=== PATIENT | female | born 1945 | race Caucasian/White ===

== ENCOUNTER 2018-03-16 21:57 | Emergency (ER) | payer MEDICARE ==
[~2018-03-16] VITALS: Ht 165.1 cm; Wt 68.0 kg
[~2018-03-16 21:57] MED LIST: ALBMDI INH; ARIP30TA PO; CARV6.2554 PO; DIVA500T4 PO; ESCI10TA PO; ESOM40CA PO; FLUT16SP16 NS; FOLI-43 PO; FOLI-59 PO; GABA-529 PO; LEVO88TA5 PO; LORA0.5T PO; LURA80TA PO; MIRA50TA PO; OMEG1CAP8 PO; POLY17PO4 PO; TRAM50TA92 PO; VIT1CAPS25 PO; VITD2000 PO; ZOLP5TAB2 PO
[2018-03-16 22:03] VITALS: BP_SYST 147
[2018-03-16] MEDS ORDERED: ACETAMINOPHEN 500 MG TABLET PO ONE (22:15)
[2018-03-16] MEDS ORDERED: LOSA50TA3 PO (22:31)
[2018-03-16] MEDS ORDERED: GABA-529 PO (22:31)
[2018-03-16] MEDS ORDERED: DICL112S2 TP (22:31)
[2018-03-16] MEDS ORDERED: CYAN100067 PO (22:31)
[2018-03-16] MEDS ORDERED: LURA80TA PO (22:31)
[2018-03-16] MEDS ORDERED: IBUP-1969 PO (22:31)
[2018-03-16] MEDS ORDERED: ALBMDI INH (22:31)
[2018-03-16] MEDS ORDERED: LINA145C PO (22:31)
[2018-03-16] MEDS ORDERED: ASPI81TA2 PO (22:31)
[2018-03-16] MEDS ORDERED: DIVA500T4 PO (22:31)
[2018-03-17 00:01] VITALS: BP_SYST 147
== END 2018-03-17 00:01 | disposition home or self-care (01) ==
LOC: SED 21:57
DX: S09.90XA Unspecified injury of head, initial encounter (principal); M25.511 Pain in right shoulder; M25.531 Pain in right wrist; E11.9 Type 2 diabetes mellitus without complications; I10 Essential (primary) hypertension; E03.9 Hypothyroidism, unspecified; F41.9 Anxiety disorder, unspecified; F31.9 Bipolar disorder, unspecified; Z88.0 Allergy status to penicillin; Z88.5 Allergy status to narcotic agent; Z79.82 Long term (current) use of aspirin; Z79.899 Other long term (current) drug therapy; W19.XXXA Unspecified fall, initial encounter; Y93.89 Activity, other specified; Y92.89 Other specified places as the place of occurrence of the external cause; Y99.8 Other external cause status
CPT/HCPCS: 70450-TC; 73030; 73090; 99284

== ENCOUNTER 2019-03-29 13:41 | Emergency (ER) | payer MEDICARE, BC ==
[~2019-03-29] VITALS: Ht 157.5 cm; Wt 68.0 kg
[~2019-03-29 13:41] MED LIST changes: +ASPI-1155 PO; +CYAN100010 PO; +DICL112S2 TP; +FISH OIL 1,0001 EAC4 PO; +IBUP-1969 PO; +LINA145C PO; +LOSA50TA3 PO; -OMEG1CAP8 PO; -TRAM50TA92 PO; -VIT1CAPS25 PO
[2019-03-29 13:44] VITALS: BP_SYST 165
[2019-03-29] MEDS ORDERED: KETOROLAC TROMETHAMINE 30 MG VIAL IM ONE (14:15)
[2019-03-29] MEDS ORDERED: ONDANSETRON 4 MG ODT TAB PO ONE (14:45)
[2019-03-29 16:56] VITALS: BP_SYST 140
== END 2019-03-29 16:56 | disposition home or self-care (01) ==
LOC: SED 13:41
DX: R51 Headache (principal); M54.2 Cervicalgia; M54.9 Dorsalgia, unspecified; E11.9 Type 2 diabetes mellitus without complications; I10 Essential (primary) hypertension; E03.9 Hypothyroidism, unspecified; F41.9 Anxiety disorder, unspecified; Z88.0 Allergy status to penicillin; Z88.5 Allergy status to narcotic agent; Z79.82 Long term (current) use of aspirin; Z79.899 Other long term (current) drug therapy; W06.XXXA Fall from bed, initial encounter; Y93.89 Activity, other specified; Y92.89 Other specified places as the place of occurrence of the external cause; Y99.8 Other external cause status
CPT/HCPCS: 70450; 72072; 72100; 72125; 96372; 99284; J1885; Q0162

== ENCOUNTER 2019-05-10 17:39 | Inpatient (IN) | payer BC, MEDICARE ==
[~2019-05-10] VITALS: Ht 165.1 cm; Wt 65.8 kg
[2019-05-10 17:44] VITALS: BP_SYST 142
[2019-05-10] MEDS ORDERED: LEVO100T9 PO (18:34)
[2019-05-10] MEDS ORDERED: CALC1CAP19 PO (18:54)
[2019-05-10] MEDS ORDERED: DIVA-50 PO (18:54)
[2019-05-10] MEDS ORDERED: Tramadol (18:54)
[2019-05-10] MEDS ORDERED: DICL100G19 TP (18:54)
[2019-05-10] MEDS ORDERED: CARB1TAB10 PO (18:54)
[2019-05-10] MEDS ORDERED: vitamin B1 (18:54)
[2019-05-10] MEDS ORDERED: ALBMDI INH ×2 (18:54)
[2019-05-10] MEDS ORDERED: GABA-531 PO ×2 (18:54→21:22)
[2019-05-10] MEDS ORDERED: DICL2SOL TP (18:54)
[2019-05-10] MEDS ORDERED: DEPS125 PO (18:54)
[2019-05-10] MEDS ORDERED: SOD4000S2 PO (18:54)
[2019-05-10] MEDS ORDERED: DONE5TAB26 PO (18:54)
[2019-05-10] MEDS ORDERED: LOPE2CAP PO (18:54)
[2019-05-10] MEDS ORDERED: ASCO500T20 PO (18:54)
[2019-05-10 19:12] LABS: BASOPHILS % (AUTO) 0.4 % (0.0-2.0); EOSINOPHILS % (AUTO) 1.2 % (0.0-4.0); HEMOGLOBIN 11.2 g/dL (12.0-16.0); LYMPHOCYTES # (AUTO) 1.2 K/uL (1.0-5.5); LYMPHOCYTES % (AUTO) 33.4 % (20.5-51.5); MEAN CORPUSCULAR HEMOGLOBIN 32 pg (27-31); MEAN CORPUSCULAR HGB CONC 34 % (32-36); MEAN CORPUSCULAR VOLUME 94 fL (79.0-98.0); MONOCYTES # (AUTO) 0.5 K/uL (0.0-1.0); MONOCYTES % (AUTO) 12.6 % (1.7-9.3); NEUTROPHILS # (AUTO) 1.9 K/uL (1.8-7.7); NEUTROPHILS % (AUTO) 52.4 % (40.0-70.0); PLATELET COUNT (AUTO) 184 K/uL (130-430); RED CELL DISTRIBUTION WIDTH 13.6 % (9.0-15.0); WHITE BLOOD COUNT (AUTO) 3.7 K/uL (4.8-10.8)
[2019-05-10 19:15] LABS: ANION GAP 2 (5-15); CALCIUM 8.9 mg/dL (8.4-11.0); CHLORIDE 94 mmol/L (98-107); CREATININE 0.69 mg/dL (0.55-1.30); GLUCOSE 98 mg/dL (70-99); POTASSIUM 4.4 mmol/L (3.5-5.1); SODIUM SERUM 127 mmol/L (136-145); UREA NITROGEN, BLOOD 15 mg/dL (8-21)
[2019-05-10 19:17] LABS: PROTHROMBIN TIME 10.4 SECS (9.5-12.5)
[2019-05-10 19:48] LABS: ALANINE AMINOTRANSFERASE 16 U/L (12-78); ASPARTATE AMINOTRANSFERASE 16 U/L (10-37); TOTAL BILIRUBIN 0.2 mg/dL (0.0-1.0)
[2019-05-10 19:51] LABS: ALCOHOL, BLOOD 3 mg/dL (<10)
[2019-05-10 19:58] LABS: FREE T4 (FREE THYROXINE) 1.2 ng/dL (0.6-1.6)
[2019-05-10] MEDS ORDERED: TRAMADOL PO (21:22)
[2019-05-10] MEDS ORDERED: VITAMIN D3 PO (21:22)
[2019-05-10] MEDS ORDERED: DONE10TA44 PO (21:22)
[2019-05-10 21:25] LABS: BILIRUBIN,URINE NEGATIVE (NEGATIVE); BLOOD, URINE NEGATIVE (NEGATIVE); CLARITY/URINE CLEAR (CLEAR); COLOR,URINE YELLOW (YELLOW); GLUCOSE,URINE NEGATIVE (NEGATIVE); KETONES,URINE NEGATIVE (NEGATIVE); NITRITE, URINE NEGATIVE (NEGATIVE); PROTEIN URINE NEGATIVE (NEGATIVE); UROBILINOGEN,URINE 0.2 (0.2-1.0)
[2019-05-10 21:37] LABS: BARBITURATE, URINE NEGATIVE (NEG <=200); BENZODIAZEPINE, URINE POSITIVE (NEG <=150); CANNABINOID, URINE NEGATIVE (NEG <=50); COCAINE, URINE NEGATIVE (NEG <=150); METHAMPHETAMINES SCREEN,URINE NEGATIVE (NEG <=500); OPIATE, URINE NEGATIVE (NEG <=100); PHENCYCLIDINE SCREEN,URINE NEGATIVE (NEG <=25); UR TRICYCLIC ANTIDEPRESSANTS NEGATIVE (NEG <=300); URINE AMPHETAMINE NEGATIVE (NEG <=500); URINE METHADONE NEGATIVE (NEG <=200); URINE OXYCODONE SCREEN NEGATIVE (NEG <=100); URINE PROPOXYPHENE SCREEN NEGATIVE (NEG <=300)
[2019-05-10 21:38] LABS: LEUKOCYTE ESTERASE ,URINE TRACE (NEGATIVE)
[2019-05-10 21:39] LABS: BACTERIA,URINE FEW /HPF (None Seen); MUCUS,URINE None Seen /LPF (None Seen); WBC,URINE NONE SEEN /HPF (0-3)
[2019-05-10] MEDS ORDERED: ASPIRIN 81 MG TAB.CHEW PO ONE (23:00)
[2019-05-10] MEDS ORDERED: KCL 20 mEq in NS 1000 mL 1,000 ML IV ONE (23:15)
[2019-05-10] MEDS ORDERED: INSULIN REGULAR, HUMAN 100 UNITS/ML, 10 ML VIAL (humuLIN R) SUBCUT PRN (23:15)
[2019-05-10] MEDS ORDERED: NACL 0.9% 1,000 ML IV ONE (23:15)
[2019-05-10 23:59] VITALS: BP_SYST 152
[2019-05-11] MEDS ORDERED: KCL 20 mEq in NS 1000 mL 1,000 ML IV ONE ×2 (00:50→14:45)
[2019-05-11 04:30] VITALS: BP_SYST 142
[2019-05-11 11:09] VITALS: BP_SYST 145
[2019-05-11 12:00] VITALS: BP_SYST 122
[2019-05-11] MEDS: KETOROLAC TROMETHAMINE 15 MG VIAL IVP PRN ×2 (14:03→20:28)
[2019-05-11] MEDS ORDERED: LOPERAMIDE HCL 2 MG CAPSULE PO PRN (14:45)
[2019-05-11] MEDS ORDERED: MILK OF MAGNESIA 30 ML UDC PO PRN (14:45)
[2019-05-11 16:00] VITALS: BP_SYST 116
[2019-05-11 20:00] VITALS: BP_SYST 141
[2019-05-11] MEDS: FLUTICASONE PROPIONATE 50 mCg/SPRAY 16 GM NS SCH (20:31)
[2019-05-11] MEDS: DOCUSATE SODIUM 100 MG CAPSULE PO SCH (20:32)
[2019-05-11] MEDS: DONEPEZIL HCL 5 MG TABLET (ARICEPT) PO SCH (20:32)
[2019-05-11] MEDS: GABAPENTIN 300 MG CAPSULE PO SCH (20:33)
[2019-05-11] MEDS: CARVEDILOL 6.25 MG TABLET (COREG) PO SCH (20:33)
[2019-05-11] MEDS: DIVALPROEX SODIUM 125 MG CAP.(DEPAKOTE SPRINKLE) PO SCH (20:33)
[2019-05-11] MEDS: ENOXAPARIN SODIUM 40 MG/0.4 ML SYRINGE SUBCUT SCH (20:34)
[2019-05-11] MEDS: TEMAZEPAM 15 MG CAPSULE PO PRN (22:14)
[2019-05-12 00:37] VITALS: BP_SYST 119
[2019-05-12 06:35] LABS: ANION GAP 2 (5-15); CALCIUM 8.6 mg/dL (8.4-11.0); CHLORIDE 100 mmol/L (98-107); CREATININE 0.77 mg/dL (0.55-1.30); GLUCOSE 81 mg/dL (70-99); POTASSIUM 4.9 mmol/L (3.5-5.1); SODIUM SERUM 135 mmol/L (136-145); UREA NITROGEN, BLOOD 13 mg/dL (8-21)
[2019-05-12 06:39] LABS: BASOPHILS % (AUTO) 0.8 % (0.0-2.0); EOSINOPHILS % (AUTO) 1.1 % (0.0-4.0); HEMATOCRIT 34.7 % (36-48); HEMOGLOBIN 12.1 g/dL (12.0-16.0); LYMPHOCYTES # (AUTO) 1.2 K/uL (1.0-5.5); LYMPHOCYTES % (AUTO) 28.9 % (20.5-51.5); MEAN CORPUSCULAR HEMOGLOBIN 33 pg (27-31); MEAN CORPUSCULAR HGB CONC 35 % (32-36); MEAN CORPUSCULAR VOLUME 94 fL (79.0-98.0); MONOCYTES # (AUTO) 0.6 K/uL (0.0-1.0); MONOCYTES % (AUTO) 14.7 % (1.7-9.3); NEUTROPHILS # (AUTO) 2.2 K/uL (1.8-7.7); NEUTROPHILS % (AUTO) 54.5 % (40.0-70.0); PLATELET COUNT (AUTO) 192 K/uL (130-430); RED BLOOD CELL COUNT(AUTO) 3.69 MIL/uL (4.2-6.2); RED CELL DISTRIBUTION WIDTH 13.8 % (9.0-15.0); WHITE BLOOD COUNT (AUTO) 4.1 K/uL (4.8-10.8)
[2019-05-12] MEDS: ASCORBIC ACID 500 MG TABLET PO SCH (08:22)
[2019-05-12] MEDS: CARVEDILOL 6.25 MG TABLET (COREG) PO SCH ×2 (08:22→20:56)
[2019-05-12] MEDS: ASPIRIN 81 MG TAB.CHEW PO SCH (08:22)
[2019-05-12] MEDS: FOLIC ACID 1 MG TABLET PO SCH (08:22)
[2019-05-12] MEDS: LEVOTHYROXINE SODIUM 0.1 MG TABLET PO SCH (08:22)
[2019-05-12] MEDS: CYANOCOBALAMIN 1000 mCg TABLET PO SCH (08:23)
[2019-05-12] MEDS: DOCUSATE SODIUM 100 MG CAPSULE PO SCH ×2 (08:23→20:56)
[2019-05-12] MEDS: LOSARTAN POTASSIUM 50 MG TABLET (COZAAR) PO SCH (08:24)
[2019-05-12] MEDS: CITALOPRAM HYDROBROMIDE 20 MG TABLET PO SCH (08:24)
[2019-05-12] MEDS: POLYETHYLENE GLYCOL 3350, 17 GM/ POWD.PACK PO SCH (08:24)
[2019-05-12] MEDS: FLUTICASONE PROPIONATE 50 mCg/SPRAY 16 GM NS SCH ×2 (08:25→21:22)
[2019-05-12] MEDS: KETOROLAC TROMETHAMINE 15 MG VIAL IVP PRN (09:49)
[2019-05-12 10:24] VITALS: BP_SYST 155
[2019-05-12 12:26] VITALS: BP_SYST 131
[2019-05-12] MEDS: IBUPROFEN 600 MG TABLET PO PRN (14:51)
[2019-05-12] MEDS: KCL 20 mEq in NS 1000 mL 1,000 ML IV SCH ×2 (15:46→23:18)
[2019-05-12 16:10] VITALS: BP_SYST 117
[2019-05-12 19:57] VITALS: BP_SYST 135
[2019-05-12] MEDS: DONEPEZIL HCL 5 MG TABLET (ARICEPT) PO SCH (20:56)
[2019-05-12] MEDS: DIVALPROEX SODIUM 125 MG CAP.(DEPAKOTE SPRINKLE) PO SCH (20:56)
[2019-05-12] MEDS: GABAPENTIN 300 MG CAPSULE PO SCH (20:56)
[2019-05-12] MEDS: ENOXAPARIN SODIUM 40 MG/0.4 ML SYRINGE SUBCUT SCH (20:57)
[2019-05-12] MEDS: TEMAZEPAM 15 MG CAPSULE PO PRN (22:06)
[2019-05-13 02:07] VITALS: BP_SYST 125
[2019-05-13] MEDS: CYANOCOBALAMIN 1000 mCg TABLET PO SCH (09:16)
[2019-05-13] MEDS: ASCORBIC ACID 500 MG TABLET PO SCH (09:16)
[2019-05-13] MEDS: DOCUSATE SODIUM 100 MG CAPSULE PO SCH ×2 (09:16→20:16)
[2019-05-13] MEDS: CARVEDILOL 6.25 MG TABLET (COREG) PO SCH ×2 (09:17→20:17)
[2019-05-13] MEDS: FOLIC ACID 1 MG TABLET PO SCH (09:18)
[2019-05-13] MEDS: LOSARTAN POTASSIUM 50 MG TABLET (COZAAR) PO SCH (09:18)
[2019-05-13] MEDS: CITALOPRAM HYDROBROMIDE 20 MG TABLET PO SCH (09:18)
[2019-05-13] MEDS: LEVOTHYROXINE SODIUM 0.1 MG TABLET PO SCH (09:19)
[2019-05-13] MEDS: POLYETHYLENE GLYCOL 3350, 17 GM/ POWD.PACK PO SCH (09:24)
[2019-05-13] MEDS: ASPIRIN 81 MG TAB.CHEW PO SCH (09:24)
[2019-05-13] MEDS: FLUTICASONE PROPIONATE 50 mCg/SPRAY 16 GM NS SCH ×2 (09:25→20:16)
[2019-05-13] MEDS: IBUPROFEN 600 MG TABLET PO PRN (10:40)
[2019-05-13 12:46] VITALS: BP_SYST 127
[2019-05-13 16:30] VITALS: BP_SYST 119
[2019-05-13 20:15] VITALS: BP_SYST 140
[2019-05-13] MEDS: DIVALPROEX SODIUM 125 MG CAP.(DEPAKOTE SPRINKLE) PO SCH (20:16)
[2019-05-13] MEDS: DONEPEZIL HCL 5 MG TABLET (ARICEPT) PO SCH (20:17)
[2019-05-13] MEDS: GABAPENTIN 300 MG CAPSULE PO SCH (20:17)
[2019-05-13] MEDS: ENOXAPARIN SODIUM 40 MG/0.4 ML SYRINGE SUBCUT SCH (20:18)
[2019-05-13] MEDS: KCL 20 mEq in NS 1000 mL 1,000 ML IV SCH (21:54)
[2019-05-13] MEDS: TEMAZEPAM 15 MG CAPSULE PO PRN (21:54)
[2019-05-14] VITALS: BP_SYST 110
[2019-05-14] MEDS: KETOROLAC TROMETHAMINE 15 MG VIAL IVP PRN (03:53)
[2019-05-14] MEDS: KCL 20 mEq in NS 1000 mL 1,000 ML IV SCH ×2 (05:51→16:05)
[2019-05-14 08:00] VITALS: BP_SYST 138
[2019-05-14] MEDS: DOCUSATE SODIUM 100 MG CAPSULE PO SCH (08:40)
[2019-05-14] MEDS: FLUTICASONE PROPIONATE 50 mCg/SPRAY 16 GM NS SCH (08:40)
[2019-05-14] MEDS: ASCORBIC ACID 500 MG TABLET PO SCH (08:40)
[2019-05-14] MEDS: POLYETHYLENE GLYCOL 3350, 17 GM/ POWD.PACK PO SCH (08:40)
[2019-05-14] MEDS: LOSARTAN POTASSIUM 50 MG TABLET (COZAAR) PO SCH (08:41)
[2019-05-14] MEDS: CYANOCOBALAMIN 1000 mCg TABLET PO SCH (08:41)
[2019-05-14] MEDS: ASPIRIN 81 MG TAB.CHEW PO SCH (08:41)
[2019-05-14] MEDS: LEVOTHYROXINE SODIUM 0.1 MG TABLET PO SCH (08:41)
[2019-05-14] MEDS: FOLIC ACID 1 MG TABLET PO SCH (08:41)
[2019-05-14] MEDS: CITALOPRAM HYDROBROMIDE 20 MG TABLET PO SCH (08:41)
[2019-05-14] MEDS: CARVEDILOL 6.25 MG TABLET (COREG) PO SCH (08:42)
[2019-05-14] MEDS: IBUPROFEN 600 MG TABLET PO PRN (08:57)
[2019-05-14 12:00] VITALS: BP_SYST 155
[2019-05-14 17:09] VITALS: BP_SYST 172
[2019-05-14 19:53] VITALS: BP_SYST 141
== END 2019-05-14 20:50 | DRG 347 ==
LOC: SED 17:39 → SMU 23:06
PROVIDERS: ADMIT Family Medicine; ATTEND Family Medicine
DX: M51.26 Other intervertebral disc displacement, lumbar region (principal); G20 Parkinson's disease; I42.9 Cardiomyopathy, unspecified; E87.1 Hypo-osmolality and hyponatremia; D64.9 Anemia, unspecified; E11.9 Type 2 diabetes mellitus without complications; M85.80 Other specified disorders of bone density and structure, unspecified site; F41.9 Anxiety disorder, unspecified; E03.9 Hypothyroidism, unspecified; M19.90 Unspecified osteoarthritis, unspecified site; F31.9 Bipolar disorder, unspecified; I10 Essential (primary) hypertension; R29.6 Repeated falls; Z79.84 Long term (current) use of oral hypoglycemic drugs; Z88.0 Allergy status to penicillin; Z88.5 Allergy status to narcotic agent; Z79.82 Long term (current) use of aspirin; Z79.899 Other long term (current) drug therapy; Z91.011 Allergy to milk products
CPT/HCPCS: 36415; 70450-TC; 71045; 72131; 72148; 74018; 80048; 80053; 80307; 81000-TC; 82140-TC; 82962; 83605; 83880; 84439; 84484; 85025; 85610-TC; 87040-TC; 93005; 97116-GP; 97530-GP; 99285; G0482; J1650; J1815; J1885; J3480

== ENCOUNTER 2022-08-11 13:35 | Inpatient (IN) | payer BC, MEDICARE ==
[~2022-08-11] VITALS: Ht 165.1 cm; Wt 65.8 kg
[2022-08-11 13:35] VITALS: BP_SYST 113
[~2022-08-11 13:35] MED LIST changes: -ARIP30TA PO; +ASCO500T20 PO; +CALC1CAP19 PO; +CARB1TAB10 PO; +DEPS125 PO; +DICL100G19 TP; -DICL112S2 TP; +DICL2SOL TP; +DIVA-50 PO; -DIVA500T4 PO; +DONE-49 PO; +DONE10TA44 PO; -GABA-529 PO; +GABA-531 PO; +LEVO100T9 PO; -LEVO88TA5 PO; +LOPE2CAP PO; -LURA80TA PO; +LURA80TA2 PO; +TRAMADOL PO; +VITAMIN D3 PO; -VITD2000 PO; -ZOLP5TAB2 PO
[2022-08-11] MEDS ORDERED: TELM80TA2 PO (14:08)
[2022-08-11] MEDS ORDERED: HYDR-3917 PO (14:08)
[2022-08-11] MEDS ORDERED: SER25 PO (14:08)
[2022-08-11] MEDS ORDERED: LEVO5TAB13 PO (14:08)
[2022-08-11] MEDS ORDERED: BUSP10TA3 PO (14:08)
[2022-08-11] MEDS ORDERED: OLOP5DRO27 EACH EYE (14:08)
[2022-08-11] MEDS ORDERED: BACL5TAB PO (14:08)
[2022-08-11 15:44] LABS: BASOPHILS % (AUTO) 0.4 % (0.0-2.0); HEMATOCRIT 36.2 % (36-48); HEMOGLOBIN 12.6 g/dL (12.0-16.0); LYMPHOCYTES % (AUTO) 15.2 % (20.5-51.5); MEAN CORPUSCULAR HEMOGLOBIN 31 pg (27-31); MEAN CORPUSCULAR HGB CONC 35 % (32-36); MEAN CORPUSCULAR VOLUME 90 fL (79.0-98.0); MONOCYTES % (AUTO) 14.4 % (1.7-9.3); NEUTROPHILS # (AUTO) 4.7 K/uL (1.8-7.7); PLATELET COUNT (AUTO) 164 K/uL (130-430); RED BLOOD CELL COUNT(AUTO) 4.03 MIL/uL (4.2-6.2); RED CELL DISTRIBUTION WIDTH 14.4 % (9.0-15.0); WHITE BLOOD COUNT (AUTO) 6.7 K/uL (4.8-10.8)
[2022-08-11 15:53] LABS: ANION GAP 5 (5-15); CHLORIDE 94 mmol/L (98-107); CREATININE 1.07 mg/dL (0.55-1.30); GLUCOSE 97 mg/dL (70-99); UREA NITROGEN, BLOOD 15 mg/dL (8-21)
[2022-08-11 16:01] LABS: ALANINE AMINOTRANSFERASE 5 U/L (12-78); ALBUMIN 3.1 g/dL (3.4-4.8); ASPARTATE AMINOTRANSFERASE 21 U/L (10-37); TOTAL BILIRUBIN 0.4 mg/dL (0.0-1.0)
[2022-08-11 16:04] LABS: ALCOHOL, BLOOD < 3 mg/dL (<10)
[2022-08-11 16:05] LABS: BILIRUBIN,URINE NEGATIVE (NEGATIVE); BLOOD, URINE 1+ (NEGATIVE); CLARITY/URINE CLEAR (CLEAR); COLOR,URINE YELLOW (YELLOW); GLUCOSE,URINE NEGATIVE (NEGATIVE); KETONES,URINE 1+ (NEGATIVE); LEUKOCYTE ESTERASE ,URINE NEGATIVE (NEGATIVE); NITRITE, URINE NEGATIVE (NEGATIVE); PH,URINE 6.5 (5.0-8.0); PROTEIN URINE NEGATIVE (NEGATIVE); UROBILINOGEN,URINE 0.2 (0.2-1.0)
[2022-08-11 16:10] LABS: CALCIUM 9.1 mg/dL (8.4-11.0)
[2022-08-11 16:18] LABS: BACTERIA,URINE FEW /HPF (None Seen); BARBITURATE, URINE NEGATIVE (NEG <=200); METHAMPHETAMINES SCREEN,URINE NEGATIVE (NEG <=500); MUCUS,URINE None Seen /LPF (None Seen); RBC,URINE NONE SEEN /HPF (0-3); URINE AMPHETAMINE NEGATIVE (NEG <=500); URINE METHADONE NEGATIVE (NEG <=200); WBC,URINE 0-3 /HPF (0-3)
[2022-08-11 16:19] LABS: BENZODIAZEPINE, URINE POSITIVE (NEG <=150); CANNABINOID, URINE NEGATIVE (NEG <=50); COCAINE, URINE NEGATIVE (NEG <=150); OPIATE, URINE NEGATIVE (NEG <=100); PHENCYCLIDINE SCREEN,URINE NEGATIVE (NEG <=25); UR TRICYCLIC ANTIDEPRESSANTS POSITIVE (NEG <=300); URINE OXYCODONE SCREEN NEGATIVE (NEG <=100); URINE PROPOXYPHENE SCREEN NEGATIVE (NEG <=300)
[2022-08-11] MEDS ORDERED: NACL 0.9% 1,000 ML IV ONE (17:30)
[2022-08-11] MEDS ORDERED: INSULIN REGULAR, HUMAN 100 UNITS/ML, 3 ML VIAL (humuLIN R) SUBCUT PRN (19:30)
[2022-08-11] MEDS ORDERED: DEXTROSE 50% JECT 50 ML DISP.SYRIN IVP PRN (19:30)
[2022-08-11] MEDS ORDERED: HYDROcodone/ACETAMIN 5-325 MG TAB (NORCO/ VICODIN) PO PRN (19:30)
[2022-08-11] MEDS ORDERED: DEXAMETHASONE SOD PHOSPHATE 10 MG/ML VIAL IVP SCH (19:30)
[2022-08-11] MEDS ORDERED: NALOXONE HCL 0.4 MG/ML AMP (NARCAN) IVP PRN (19:30)
[2022-08-11] MEDS: D5NS 1,000 ML IV SCH (20:12)
[2022-08-11] MEDS: FLUTICASONE PROPIONATE 50 mCg/SPRAY 16 GM NS SCH (21:00)
[2022-08-11] MEDS: busPIRone HCL 5 MG TABLET PO SCH (21:00)
[2022-08-11] MEDS: DONEPEZIL HCL 5 MG TABLET (ARICEPT) PO SCH (21:00)
[2022-08-11] MEDS ORDERED: DONEPEZIL HCL 5 MG PO SCH (21:00)
[2022-08-11 22:23] VITALS: BP_SYST 147
[2022-08-12] MEDS: D5NS 1,000 ML IV SCH ×2 (04:17→13:50)
[2022-08-12] MEDS: PANTOPRAZOLE SODIUM 40 MG TAB PO SCH (06:54)
[2022-08-12 08:21] LABS: BASOPHILS % (AUTO) 0.6 % (0.0-2.0); HEMATOCRIT 35.7 % (36-48); HEMOGLOBIN 12.1 g/dL (12.0-16.0); LYMPHOCYTES # (AUTO) 1.1 K/uL (1.0-5.5); LYMPHOCYTES % (AUTO) 25.3 % (20.5-51.5); MEAN CORPUSCULAR HEMOGLOBIN 31 pg (27-31); MEAN CORPUSCULAR HGB CONC 34 % (32-36); MEAN CORPUSCULAR VOLUME 90 fL (79.0-98.0); MONOCYTES # (AUTO) 0.7 K/uL (0.0-1.0); NEUTROPHILS # (AUTO) 2.5 K/uL (1.8-7.7); NEUTROPHILS % (AUTO) 58.1 % (40.0-70.0); PLATELET COUNT (AUTO) 164 K/uL (130-430); RED BLOOD CELL COUNT(AUTO) 3.96 MIL/uL (4.2-6.2); RED CELL DISTRIBUTION WIDTH 14.2 % (9.0-15.0); WHITE BLOOD COUNT (AUTO) 4.4 K/uL (4.8-10.8)
[2022-08-12 08:48] LABS: ALANINE AMINOTRANSFERASE 9 U/L (12-78); ALBUMIN 2.8 g/dL (3.4-4.8); ANION GAP 7 (5-15); ASPARTATE AMINOTRANSFERASE 22 U/L (10-37); CALCIUM 8.3 mg/dL (8.4-11.0); CHLORIDE 95 mmol/L (98-107); CREATININE 0.59 mg/dL (0.55-1.30); FREE T4 (FREE THYROXINE) 1.3 ng/dL (0.6-1.6); GLUCOSE 103 mg/dL (70-99); THYROID STIMULATING HORMONE 0.06 uIu/mL (0.34-4.82); TOTAL BILIRUBIN 0.4 mg/dL (0.0-1.0); UREA NITROGEN, BLOOD 12 mg/dL (8-21)
[2022-08-12] MEDS ORDERED: LEVOTHYROXINE SODIUM 0.1 MG TABLET PO SCH (09:00)
[2022-08-12] MEDS: CARVEDILOL 6.25 MG TABLET (COREG) PO SCH ×2 (09:00→21:57)
[2022-08-12] MEDS: ASCORBIC ACID 500 MG TABLET PO SCH (09:22)
[2022-08-12] MEDS: DIVALPROEX SODIUM 500 MG TABLET( DEPAKOTE) PO SCH ×2 (09:22→17:11)
[2022-08-12] MEDS: CITALOPRAM HYDROBROMIDE 20 MG TABLET PO SCH (09:22)
[2022-08-12] MEDS: FOLIC ACID 1 MG TABLET PO SCH (09:22)
[2022-08-12] MEDS: MULTIVITS,CA,MINERALS/IRON/FA 1 TABLET PO SCH (09:23)
[2022-08-12] MEDS: CYANOCOBALAMIN 1000 mCg TABLET PO SCH (09:23)
[2022-08-12] MEDS: busPIRone HCL 5 MG TABLET PO SCH ×2 (09:23→21:57)
[2022-08-12] MEDS: OMEGA-3/DHA/EPA/FISH OIL 1 GM CAPSULE PO SCH (09:23)
[2022-08-12] MEDS: ASPIRIN 81 MG TAB.CHEW PO SCH (09:24)
[2022-08-12] MEDS: CALCIUM CARBONATE/VITAMIN D3 1 TAB TABLET PO SCH (09:24)
[2022-08-12] MEDS: POLYETHYLENE GLYCOL 3350, 17 GM/ POWD.PACK PO SCH (09:24)
[2022-08-12] MEDS: CHOLECALCIFEROL (VITAMIN D3) 5,000 UNIT TABLET PO SCH (09:25)
[2022-08-12] MEDS: NAPHAZOLINE HCL/PHENIRAMINE 15 ML OPHT. DROPS OP SCH (09:26)
[2022-08-12] MEDS: FLUTICASONE PROPIONATE 50 mCg/SPRAY 16 GM NS SCH ×3 (09:26→22:12)
[2022-08-12 12:45] VITALS: BP_SYST 133
[2022-08-12] MEDS ORDERED: POTASSIUM CHLORIDE 20 MEQ TAB.PRT.SR PO ONE (16:30)
[2022-08-12 16:45] VITALS: BP_SYST 134
[2022-08-12] MEDS: LR 1,000 ML IV SCH (17:11)
[2022-08-12] MEDS: QUEtiapine FUMARATE 25 MG TABLET PO SCH (18:25)
[2022-08-12 20:45] VITALS: BP_SYST 125
[2022-08-12] MEDS: LATUDA 40 MG PO SCH (21:00)
[2022-08-12] MEDS: DIVALPROEX SODIUM 125 MG CAP.(DEPAKOTE SPRINKLE) PO SCH (21:57)
[2022-08-12] MEDS: ALBUTEROL MDI INHALATION 8 GM INH INH PRN (21:57)
[2022-08-12] MEDS: DONEPEZIL HCL 5 MG TABLET (ARICEPT) PO SCH (21:58)
[2022-08-12] MEDS: CARBIDOPA/LEVODOPA 25/100 MG TABLET PO SCH (22:11)
[2022-08-13 00:25] VITALS: BP_SYST 116
[2022-08-13] MEDS: LEVOTHYROXINE SODIUM 0.1 MG TABLET PO SCH (06:18)
[2022-08-13] MEDS: PANTOPRAZOLE SODIUM 40 MG TAB PO SCH (06:18)
[2022-08-13] MEDS: ALBUTEROL MDI INHALATION 8 GM INH INH PRN (06:34)
[2022-08-13] MEDS: LATUDA 40 MG PO SCH ×2 (09:00→21:00)
[2022-08-13] MEDS: OMEGA-3/DHA/EPA/FISH OIL 1 GM CAPSULE PO SCH (09:00)
[2022-08-13] MEDS: MYRBETRIQ 50 MG PO SCH (09:00)
[2022-08-13 09:02] VITALS: BP_SYST 140
[2022-08-13] MEDS: CARVEDILOL 6.25 MG TABLET (COREG) PO SCH ×2 (10:32→21:50)
[2022-08-13] MEDS: ASPIRIN 81 MG TAB.CHEW PO SCH (10:33)
[2022-08-13] MEDS: CITALOPRAM HYDROBROMIDE 20 MG TABLET PO SCH (10:33)
[2022-08-13] MEDS: busPIRone HCL 5 MG TABLET PO SCH ×2 (10:33→21:49)
[2022-08-13] MEDS: DIVALPROEX SODIUM 500 MG TABLET( DEPAKOTE) PO SCH ×2 (10:33→16:09)
[2022-08-13] MEDS: MULTIVITS,CA,MINERALS/IRON/FA 1 TABLET PO SCH (10:40)
[2022-08-13] MEDS: FOLIC ACID 1 MG TABLET PO SCH (10:40)
[2022-08-13] MEDS: ASCORBIC ACID 500 MG TABLET PO SCH (10:40)
[2022-08-13] MEDS: CALCIUM CARBONATE/VITAMIN D3 1 TAB TABLET PO SCH (10:40)
[2022-08-13] MEDS: POLYETHYLENE GLYCOL 3350, 17 GM/ POWD.PACK PO SCH (10:40)
[2022-08-13] MEDS: CYANOCOBALAMIN 1000 mCg TABLET PO SCH (10:40)
[2022-08-13] MEDS: FLUTICASONE PROPIONATE 50 mCg/SPRAY 16 GM NS SCH ×2 (10:41→21:51)
[2022-08-13] MEDS: CHOLECALCIFEROL (VITAMIN D3) 5,000 UNIT TABLET PO SCH (10:41)
[2022-08-13] MEDS: NAPHAZOLINE HCL/PHENIRAMINE 15 ML OPHT. DROPS OP SCH (10:42)
[2022-08-13] MEDS: LR 1,000 ML IV SCH (14:10)
[2022-08-13 15:33] LABS: BASOPHILS # (AUTO) 0.2 K/uL (0.0-0.2); BASOPHILS % (AUTO) 3.8 % (0.0-2.0); EOSINOPHILS % (AUTO) 0.3 % (0.0-4.0); HEMATOCRIT 34.5 % (36-48); HEMOGLOBIN 12.2 g/dL (12.0-16.0); LYMPHOCYTES # (AUTO) 1.1 K/uL (1.0-5.5); LYMPHOCYTES % (AUTO) 17.7 % (20.5-51.5); MEAN CORPUSCULAR HEMOGLOBIN 31 pg (27-31); MEAN CORPUSCULAR HGB CONC 35 % (32-36); MEAN CORPUSCULAR VOLUME 89 fL (79.0-98.0); MONOCYTES # (AUTO) 0.6 K/uL (0.0-1.0); MONOCYTES % (AUTO) 9.7 % (1.7-9.3); NEUTROPHILS # (AUTO) 4.2 K/uL (1.8-7.7); NEUTROPHILS % (AUTO) 68.5 % (40.0-70.0); PLATELET COUNT (AUTO) 163 K/uL (130-430); RED BLOOD CELL COUNT(AUTO) 3.88 MIL/uL (4.2-6.2); WHITE BLOOD COUNT (AUTO) 6.1 K/uL (4.8-10.8)
[2022-08-13 15:43] LABS: ANION GAP 3 (5-15); CALCIUM 8.7 mg/dL (8.4-11.0); CHLORIDE 97 mmol/L (98-107); CREATININE 0.51 mg/dL (0.55-1.30); GLUCOSE 97 mg/dL (70-99); UREA NITROGEN, BLOOD 6 mg/dL (8-21)
[2022-08-13 16:25] VITALS: BP_SYST 148
[2022-08-13] MEDS: QUEtiapine FUMARATE 25 MG TABLET PO SCH (18:15)
[2022-08-13 20:00] VITALS: BP_SYST 133
[2022-08-13] MEDS: DONEPEZIL HCL 5 MG TABLET (ARICEPT) PO SCH (21:49)
[2022-08-13] MEDS: DIVALPROEX SODIUM 125 MG CAP.(DEPAKOTE SPRINKLE) PO SCH (21:49)
[2022-08-13] MEDS: CARBIDOPA/LEVODOPA 25/100 MG TABLET PO SCH (21:49)
[2022-08-14 01:59] VITALS: BP_SYST 135
[2022-08-14 06:38] LABS: BASOPHILS % (AUTO) 0.4 % (0.0-2.0); EOSINOPHILS % (AUTO) 0.6 % (0.0-4.0); HEMATOCRIT 35.2 % (36-48); LYMPHOCYTES # (AUTO) 1.3 K/uL (1.0-5.5); LYMPHOCYTES % (AUTO) 39.2 % (20.5-51.5); MEAN CORPUSCULAR HEMOGLOBIN 30 pg (27-31); MEAN CORPUSCULAR HGB CONC 34 % (32-36); MEAN CORPUSCULAR VOLUME 89 fL (79.0-98.0); MONOCYTES # (AUTO) 0.5 K/uL (0.0-1.0); MONOCYTES % (AUTO) 16.5 % (1.7-9.3); NEUTROPHILS # (AUTO) 1.4 K/uL (1.8-7.7); NEUTROPHILS % (AUTO) 43.3 % (40.0-70.0); PLATELET COUNT (AUTO) 162 K/uL (130-430); RED BLOOD CELL COUNT(AUTO) 3.95 MIL/uL (4.2-6.2); RED CELL DISTRIBUTION WIDTH 14.1 % (9.0-15.0); WHITE BLOOD COUNT (AUTO) 3.3 K/uL (4.8-10.8)
[2022-08-14] MEDS: PANTOPRAZOLE SODIUM 40 MG TAB PO SCH (06:38)
[2022-08-14] MEDS: LEVOTHYROXINE SODIUM 0.1 MG TABLET PO SCH (06:38)
[2022-08-14 07:27] LABS: ANION GAP 4 (5-15); CALCIUM 8.7 mg/dL (8.4-11.0); CHLORIDE 98 mmol/L (98-107); CREATININE 0.51 mg/dL (0.55-1.30); GLUCOSE 91 mg/dL (70-99); UREA NITROGEN, BLOOD 6 mg/dL (8-21)
[2022-08-14 08:00] VITALS: BP_SYST 177
[2022-08-14] MEDS: LATUDA 40 MG PO SCH ×2 (09:00→22:15)
[2022-08-14] MEDS: MYRBETRIQ 50 MG PO SCH (09:00)
[2022-08-14] MEDS: POLYETHYLENE GLYCOL 3350, 17 GM/ POWD.PACK PO SCH (09:30)
[2022-08-14] MEDS: ASPIRIN 81 MG TAB.CHEW PO SCH (09:30)
[2022-08-14] MEDS: LR 1,000 ML IV SCH (09:30)
[2022-08-14] MEDS: ASCORBIC ACID 500 MG TABLET PO SCH (09:31)
[2022-08-14] MEDS: CYANOCOBALAMIN 1000 mCg TABLET PO SCH (09:31)
[2022-08-14] MEDS: MULTIVITS,CA,MINERALS/IRON/FA 1 TABLET PO SCH (09:31)
[2022-08-14] MEDS: busPIRone HCL 5 MG TABLET PO SCH ×2 (09:31→22:15)
[2022-08-14] MEDS: FOLIC ACID 1 MG TABLET PO SCH (09:31)
[2022-08-14] MEDS: DIVALPROEX SODIUM 500 MG TABLET( DEPAKOTE) PO SCH ×2 (09:31→14:18)
[2022-08-14] MEDS: CALCIUM CARBONATE/VITAMIN D3 1 TAB TABLET PO SCH (09:31)
[2022-08-14] MEDS: CITALOPRAM HYDROBROMIDE 20 MG TABLET PO SCH (09:32)
[2022-08-14] MEDS: OMEGA-3/DHA/EPA/FISH OIL 1 GM CAPSULE PO SCH (09:32)
[2022-08-14] MEDS: CHOLECALCIFEROL (VITAMIN D3) 5,000 UNIT TABLET PO SCH (09:32)
[2022-08-14] MEDS: CARVEDILOL 6.25 MG TABLET (COREG) PO SCH ×2 (09:36→22:15)
[2022-08-14] MEDS: NAPHAZOLINE HCL/PHENIRAMINE 15 ML OPHT. DROPS OP SCH (09:37)
[2022-08-14] MEDS: FLUTICASONE PROPIONATE 50 mCg/SPRAY 16 GM NS SCH ×2 (09:37→22:15)
[2022-08-14 11:38] VITALS: BP_SYST 138
[2022-08-14 12:53] LABS: C-REACTIVE PROTEIN QUANT 4.2 mg/dL (0-0.5)
[2022-08-14] MEDS ORDERED: ENOXAPARIN SODIUM 30 MG/0.3 ML SYRINGE SUBCUT SCH (14:00)
[2022-08-14] MEDS ORDERED: ENOXAPARIN SODIUM 30 MG/0.3 ML SYRINGE SUBCUT ONE (14:00)
[2022-08-14] MEDS: AZITHROMYCIN 500 MG in NS 250 ML IV SCH (14:18)
[2022-08-14 17:31] VITALS: BP_SYST 141
[2022-08-14] MEDS: QUEtiapine FUMARATE 25 MG TABLET PO SCH (17:58)
[2022-08-14] MEDS: DIVALPROEX SODIUM 125 MG CAP.(DEPAKOTE SPRINKLE) PO SCH (22:15)
[2022-08-14] MEDS: DONEPEZIL HCL 5 MG TABLET (ARICEPT) PO SCH (22:15)
[2022-08-14] MEDS: CARBIDOPA/LEVODOPA 25/100 MG TABLET PO SCH (22:15)
[2022-08-15] VITALS: BP_SYST 136
[2022-08-15] MEDS: LR 1,000 ML IV SCH (04:15)
[2022-08-15 06:15] VITALS: BP_SYST 140
[2022-08-15] MEDS: PANTOPRAZOLE SODIUM 40 MG TAB PO SCH (07:00)
[2022-08-15 08:00] VITALS: BP_SYST 129
[2022-08-15] MEDS: CARVEDILOL 6.25 MG TABLET (COREG) PO SCH ×2 (09:00→21:18)
[2022-08-15] MEDS: ASPIRIN 81 MG TAB.CHEW PO SCH (09:00)
[2022-08-15] MEDS: FOLIC ACID 1 MG TABLET PO SCH (09:00)
[2022-08-15] MEDS: ENOXAPARIN SODIUM 30 MG/0.3 ML SYRINGE SUBCUT SCH (09:00)
[2022-08-15] MEDS: MULTIVITS,CA,MINERALS/IRON/FA 1 TABLET PO SCH (09:00)
[2022-08-15] MEDS: CYANOCOBALAMIN 1000 mCg TABLET PO SCH (09:00)
[2022-08-15] MEDS: NAPHAZOLINE HCL/PHENIRAMINE 15 ML OPHT. DROPS OP SCH (09:00)
[2022-08-15] MEDS: CALCIUM CARBONATE/VITAMIN D3 1 TAB TABLET PO SCH (09:00)
[2022-08-15] MEDS: MYRBETRIQ 50 MG PO SCH (09:00)
[2022-08-15] MEDS: CHOLECALCIFEROL (VITAMIN D3) 5,000 UNIT TABLET PO SCH (09:00)
[2022-08-15] MEDS: FLUTICASONE PROPIONATE 50 mCg/SPRAY 16 GM NS SCH ×2 (09:00→21:45)
[2022-08-15] MEDS: POLYETHYLENE GLYCOL 3350, 17 GM/ POWD.PACK PO SCH (09:00)
[2022-08-15] MEDS: LATUDA 40 MG PO SCH ×2 (09:00→21:00)
[2022-08-15] MEDS: busPIRone HCL 5 MG TABLET PO SCH ×2 (09:00→21:17)
[2022-08-15] MEDS: OMEGA-3/DHA/EPA/FISH OIL 1 GM CAPSULE PO SCH (09:00)
[2022-08-15] MEDS: CITALOPRAM HYDROBROMIDE 20 MG TABLET PO SCH (09:00)
[2022-08-15] MEDS: DIVALPROEX SODIUM 500 MG TABLET( DEPAKOTE) PO SCH ×2 (09:00→16:09)
[2022-08-15] MEDS: ASCORBIC ACID 500 MG TABLET PO SCH (09:00)
[2022-08-15] MEDS: LEVOTHYROXINE SODIUM 0.1 MG TABLET PO SCH (10:41)
[2022-08-15 12:00] VITALS: BP_SYST 131
[2022-08-15] MEDS: AZITHROMYCIN 500 MG in NS 250 ML IV SCH (15:05)
[2022-08-15 16:00] VITALS: BP_SYST 126
[2022-08-15] MEDS: QUEtiapine FUMARATE 25 MG TABLET PO SCH (18:54)
[2022-08-15 19:30] VITALS: BP_SYST 166
[2022-08-15] MEDS: DIVALPROEX SODIUM 125 MG CAP.(DEPAKOTE SPRINKLE) PO SCH (21:17)
[2022-08-15] MEDS: CARBIDOPA/LEVODOPA 25/100 MG TABLET PO SCH (21:17)
[2022-08-15] MEDS: DONEPEZIL HCL 5 MG TABLET (ARICEPT) PO SCH (21:17)
[2022-08-16 00:04] VITALS: BP_SYST 147
[2022-08-16] MEDS: PANTOPRAZOLE SODIUM 40 MG TAB PO SCH (06:16)
[2022-08-16] MEDS: LEVOTHYROXINE SODIUM 0.1 MG TABLET PO SCH (06:17)
[2022-08-16] MEDS: MYRBETRIQ 50 MG PO SCH (09:00)
[2022-08-16] MEDS: LATUDA 40 MG PO SCH ×2 (09:00→21:00)
[2022-08-16] MEDS: OMEGA-3/DHA/EPA/FISH OIL 1 GM CAPSULE PO SCH (09:48)
[2022-08-16] MEDS: POLYETHYLENE GLYCOL 3350, 17 GM/ POWD.PACK PO SCH (09:48)
[2022-08-16] MEDS: CITALOPRAM HYDROBROMIDE 20 MG TABLET PO SCH (09:48)
[2022-08-16] MEDS: ENOXAPARIN SODIUM 30 MG/0.3 ML SYRINGE SUBCUT SCH (09:48)
[2022-08-16] MEDS: CALCIUM CARBONATE/VITAMIN D3 1 TAB TABLET PO SCH (09:48)
[2022-08-16] MEDS: MULTIVITS,CA,MINERALS/IRON/FA 1 TABLET PO SCH (09:49)
[2022-08-16] MEDS: ASCORBIC ACID 500 MG TABLET PO SCH (09:49)
[2022-08-16] MEDS: DIVALPROEX SODIUM 500 MG TABLET( DEPAKOTE) PO SCH ×2 (09:49→15:20)
[2022-08-16] MEDS: CHOLECALCIFEROL (VITAMIN D3) 5,000 UNIT TABLET PO SCH (09:49)
[2022-08-16] MEDS: FLUTICASONE PROPIONATE 50 mCg/SPRAY 16 GM NS SCH ×2 (09:49→21:00)
[2022-08-16] MEDS: ASPIRIN 81 MG TAB.CHEW PO SCH (09:50)
[2022-08-16] MEDS: busPIRone HCL 5 MG TABLET PO SCH ×2 (09:50→21:00)
[2022-08-16] MEDS: NAPHAZOLINE HCL/PHENIRAMINE 15 ML OPHT. DROPS OP SCH (09:50)
[2022-08-16] MEDS: CARVEDILOL 6.25 MG TABLET (COREG) PO SCH ×2 (09:51→21:00)
[2022-08-16] MEDS: CYANOCOBALAMIN 1000 mCg TABLET PO SCH (09:51)
[2022-08-16] MEDS: FOLIC ACID 1 MG TABLET PO SCH (09:52)
[2022-08-16 11:30] VITALS: BP_SYST 182
[2022-08-16] MEDS: AZITHROMYCIN 500 MG in NS 250 ML IV SCH (15:19)
[2022-08-16 16:00] VITALS: BP_SYST 149
[2022-08-16] MEDS: QUEtiapine FUMARATE 25 MG TABLET PO SCH (18:21)
[2022-08-16 18:23] VITALS: BP_SYST 111
[2022-08-16 20:15] VITALS: BP_SYST 140
[2022-08-16] MEDS: DIVALPROEX SODIUM 125 MG CAP.(DEPAKOTE SPRINKLE) PO SCH (21:00)
[2022-08-16] MEDS: DONEPEZIL HCL 5 MG TABLET (ARICEPT) PO SCH (21:00)
[2022-08-16] MEDS: CARBIDOPA/LEVODOPA 25/100 MG TABLET PO SCH (21:00)
[2022-08-17 00:20] VITALS: BP_SYST 142
[2022-08-17] MEDS: LEVOTHYROXINE SODIUM 0.1 MG TABLET PO SCH (06:47)
[2022-08-17] MEDS: PANTOPRAZOLE SODIUM 40 MG TAB PO SCH (06:47)
[2022-08-17] MEDS: MYRBETRIQ 50 MG PO SCH (09:00)
[2022-08-17 10:27] VITALS: BP_SYST 129
[2022-08-17] MEDS: FLUTICASONE PROPIONATE 50 mCg/SPRAY 16 GM NS SCH (10:51)
[2022-08-17] MEDS ORDERED: LOVI30 SUBCUT (10:51)
[2022-08-17] MEDS: ASPIRIN 81 MG TAB.CHEW PO SCH (10:52)
[2022-08-17] MEDS: busPIRone HCL 5 MG TABLET PO SCH (10:52)
[2022-08-17] MEDS: CITALOPRAM HYDROBROMIDE 20 MG TABLET PO SCH (10:52)
[2022-08-17] MEDS: NAPHAZOLINE HCL/PHENIRAMINE 15 ML OPHT. DROPS OP SCH (10:52)
[2022-08-17] MEDS ORDERED: ZIT250 PO (10:52)
[2022-08-17] MEDS: CARVEDILOL 6.25 MG TABLET (COREG) PO SCH (10:53)
[2022-08-17] MEDS: DIVALPROEX SODIUM 500 MG TABLET( DEPAKOTE) PO SCH (10:54)
[2022-08-17] MEDS: FOLIC ACID 1 MG TABLET PO SCH (10:54)
[2022-08-17] MEDS: OMEGA-3/DHA/EPA/FISH OIL 1 GM CAPSULE PO SCH (10:54)
[2022-08-17] MEDS: POLYETHYLENE GLYCOL 3350, 17 GM/ POWD.PACK PO SCH (10:55)
[2022-08-17] MEDS: CALCIUM CARBONATE/VITAMIN D3 1 TAB TABLET PO SCH (10:55)
[2022-08-17] MEDS: LATUDA 40 MG PO SCH (10:55)
[2022-08-17] MEDS: MULTIVITS,CA,MINERALS/IRON/FA 1 TABLET PO SCH (10:56)
[2022-08-17] MEDS: CHOLECALCIFEROL (VITAMIN D3) 5,000 UNIT TABLET PO SCH (10:56)
[2022-08-17] MEDS: CYANOCOBALAMIN 1000 mCg TABLET PO SCH (10:56)
[2022-08-17] MEDS: ASCORBIC ACID 500 MG TABLET PO SCH (10:56)
[2022-08-17] MEDS: ENOXAPARIN SODIUM 30 MG/0.3 ML SYRINGE SUBCUT SCH (10:57)
[2022-08-17] MEDS ORDERED: AZITHROMYCIN 250 MG TABLET PO ONE (11:45)
[2022-08-17 11:57] VITALS: BP_SYST 141
== END 2022-08-17 12:50 | DRG 137 ==
LOC: SED 13:35 → STU 18:09 → SMU 08-15 23:46
PROVIDERS: ADMIT Family Medicine; ATTEND Family Medicine
DX: U07.1 COVID-19 (principal); G93.41 Metabolic encephalopathy; E44.1 Mild protein-calorie malnutrition; E87.1 Hypo-osmolality and hyponatremia; E03.9 Hypothyroidism, unspecified; I10 Essential (primary) hypertension; I45.10 Unspecified right bundle-branch block; F31.9 Bipolar disorder, unspecified; F03.90 Unspecified dementia, unspecified severity, without behavioral disturbance, psychotic disturbance, mood disturbance, and anxiety; M19.90 Unspecified osteoarthritis, unspecified site; R00.1 Bradycardia, unspecified; Z88.0 Allergy status to penicillin; Z88.5 Allergy status to narcotic agent; Z88.8 Allergy status to other drugs, medicaments and biological substances; Z91.011 Allergy to milk products; Z79.899 Other long term (current) drug therapy; Z68.24 Body mass index [BMI] 24.0-24.9, adult
CPT/HCPCS: 36415; 70450-TC; 71045; 76376; 80048; 80053; 80307; 81000; 82140; 82962; 83605; 83615; 83735; 84439; 84443; 84484; 85025; 86140; 93005; 96360; 97110-GP; 97112-GP; 97116-GP; 99285; G0378; G0482; J0456; J1650; J7042; J7050; J7120; Q0144

== ENCOUNTER 2024-04-27 19:33 | Inpatient (IN) | payer BC, MEDICARE ==
[~2024-04-27] VITALS: Ht 165.1 cm; Wt 74.5 kg
[~2024-04-27 19:33] MED LIST changes: +BACL5TAB PO; +BUSP10TA3 PO; -GABA-531 PO; -IBUP-1969 PO; -LOPE2CAP PO; -LORA0.5T PO; +LOSA-413 PO; -LOSA50TA3 PO; +LOVI30 SUBCUT; +OLOP5DRO27 EACH EYE; +SER25 PO; -TRAMADOL PO; +ZIT250 PO
[2024-04-27 19:45] VITALS: BP_SYST 150; PULSE 80; RESP 18; TEMP 98.7; O2SAT 94
[2024-04-27 20:19] LABS: BASOPHILS % (AUTO) 0.6 % (0.0-2.0); EOSINOPHILS # (AUTO) 0.2 K/uL (0.0-0.4); EOSINOPHILS % (AUTO) 2.9 % (0.0-4.0); HEMATOCRIT 37.9 % (36-48); LYMPHOCYTES # (AUTO) 2.3 K/uL (1.0-5.5); LYMPHOCYTES % (AUTO) 41.5 % (20.5-51.5); MEAN CORPUSCULAR HEMOGLOBIN 33 pg (27-31); MEAN CORPUSCULAR HGB CONC 34 % (32-36); MEAN CORPUSCULAR VOLUME 95 fL (79.0-98.0); MONOCYTES # (AUTO) 0.7 K/uL (0.0-1.0); MONOCYTES % (AUTO) 11.9 % (1.7-9.3); NEUTROPHILS # (AUTO) 2.4 K/uL (1.8-7.7); NEUTROPHILS % (AUTO) 43.1 % (40.0-70.0); PLATELET COUNT (AUTO) 170 K/uL (130-430); RED BLOOD CELL COUNT(AUTO) 3.98 MIL/uL (4.2-6.2); RED CELL DISTRIBUTION WIDTH 13.5 % (9.0-15.0); WHITE BLOOD COUNT (AUTO) 5.5 K/uL (4.8-10.8)
[2024-04-27 20:27] LABS: PROTHROMBIN TIME 10.4 SECS (9.5-12.5)
[2024-04-27 20:30] LABS: ANION GAP 5 (5-15); CARBON DIOXIDE 31 mmol/L (23-29); CHLORIDE 98 mmol/L (98-107); CREATININE 0.74 mg/dL (0.55-1.30); GLUCOSE 112 mg/dL (74-106); POTASSIUM 3.7 mmol/L (3.5-5.1); SODIUM SERUM 134 mmol/L (136-145); UREA NITROGEN, BLOOD 12 mg/dL (8-21)
[2024-04-28] VITALS (12 sets, daily range): BP systolic 113–158; PULSE 76–108; RESP 16–20; TEMP 97.4–99.1; O2SAT 92–99
[2024-04-28 01:10] LABS: COVID19 ANTIGEN SOFIA FIA NEGATIVE (NEGATIVE)
[2024-04-28 01:11] LABS: INFLUENZA TYPE A Negative (NEGATIVE); INFLUENZA TYPE B NEGATIVE (NEGATIVE)
[2024-04-28] MEDS ORDERED: ONDANSETRON HCL 4 MG/2 ML VIAL IVP PRN (02:15)
[2024-04-28] MEDS ORDERED: HYDROmorphone 1 MG/ML INJ. CARTRIDGE IVP PRN (02:15)
[2024-04-28] MEDS ORDERED: MORPHINE 2 MG/ML INJ. SYRINGE IVP PRN (02:15)
[2024-04-28] MEDS ORDERED: ALEN10TA25 PO (02:25)
[2024-04-28] MEDS ORDERED: AMLO5TAB4 PO (02:26)
[2024-04-28] MEDS ORDERED: CETI10CA PO (02:30)
[2024-04-28] MEDS ORDERED: ACETAMINOPHEN 325 MG TABLET PO PRN (02:30)
[2024-04-28] MEDS ORDERED: WHEA98PO PO (02:30)
[2024-04-28] MEDS ORDERED: FAMO20TA8 PO (02:35)
[2024-04-28] MEDS ORDERED: LEVO88TA5 PO (02:35)
[2024-04-28] MEDS ORDERED: MEMA7CAP PO (02:35)
[2024-04-28] MEDS ORDERED: LORA-258 PO (02:35)
[2024-04-28] MEDS ORDERED: LATA2.5D14 OP (02:35)
[2024-04-28] MEDS ORDERED: NEU300 PO (02:35)
[2024-04-28] MEDS: predniSONE 20 MG TABLET PO SCH (03:07)
[2024-04-28] MEDS: ALBUTEROL SULFATE 0.083% 2.5 MG/3 ML VIAL.NEB INH SCH (03:19)
[2024-04-28] MEDS: IPRATROPIUM BROM 0.5 MG/2.5 ML VIAL.NEB (ATROVENT) INH SCH (03:20)
[2024-04-28] MEDS ORDERED: MEMA5TAB16 PO (06:33)
[2024-04-28] MEDS ORDERED: CARB1TAB33 PO (07:03)
[2024-04-28] MEDS ORDERED: SER100 PO (07:32)
[2024-04-28] MEDS ORDERED: NON-FORMULARY MEDICATION (Lurasidone Hcl (Latuda) 40 MG) PO SCH (09:00)
[2024-04-28] MEDS ORDERED: ESCITALOPRAM OXALATE 10 MG TABLET PO SCH (09:00)
[2024-04-28] MEDS ORDERED: FLUTICASONE PROPIONATE 50 mCg/SPRAY 16 GM NS SCH (09:00)
[2024-04-28] MEDS: CARVEDILOL 6.25 MG TABLET (COREG) PO SCH (09:44)
[2024-04-28] MEDS: busPIRone HCL 5 MG TABLET PO SCH (09:44)
[2024-04-28] MEDS: MEMANTINE HCL 5 MG TABLET PO SCH (09:44)
[2024-04-28] MEDS: CITALOPRAM HYDROBROMIDE 20 MG TABLET PO SCH (09:45)
[2024-04-28] MEDS: FAMOTIDINE 20 MG TABLET PO SCH (09:46)
[2024-04-28] MEDS: QUEtiapine FUMARATE 100 MG TABLET PO SCH (09:46)
[2024-04-28] MEDS: DIVALPROEX SODIUM 500 MG TABLET( DEPAKOTE) PO SCH (09:47)
[2024-04-28] MEDS: CARBIDOPA/LEVODOPA 25/100 MG TABLET PO SCH (09:48)
[2024-04-28] MEDS: LORazepam 1 MG TABLET PO SCH (09:54)
[2024-04-28] MEDS: amLODIPine BESYLATE 5 MG TABLET PO SCH (09:56)
[2024-04-28] MEDS: FLUTICASONE PROPIONATE 50 mCg/SPRAY 16 GM NS SCH (10:00)
[2024-04-28 10:12] LABS: BASOPHILS % (AUTO) 0.6 % (0.0-2.0); EOSINOPHILS % (AUTO) 0.2 % (0.0-4.0); HEMATOCRIT 40.8 % (36-48); HEMOGLOBIN 13.7 g/dL (12.0-16.0); LYMPHOCYTES # (AUTO) 0.9 K/uL (1.0-5.5); LYMPHOCYTES % (AUTO) 16.8 % (20.5-51.5); MEAN CORPUSCULAR HEMOGLOBIN 32 pg (27-31); MEAN CORPUSCULAR HGB CONC 34 % (32-36); MEAN CORPUSCULAR VOLUME 95 fL (79.0-98.0); MONOCYTES # (AUTO) 0.2 K/uL (0.0-1.0); MONOCYTES % (AUTO) 3.2 % (1.7-9.3); NEUTROPHILS # (AUTO) 4.4 K/uL (1.8-7.7); NEUTROPHILS % (AUTO) 79.2 % (40.0-70.0); PLATELET COUNT (AUTO) 175 K/uL (130-430); RED CELL DISTRIBUTION WIDTH 13.8 % (9.0-15.0); WHITE BLOOD COUNT (AUTO) 5.6 K/uL (4.8-10.8)
[2024-04-28 10:19] LABS: ALANINE AMINOTRANSFERASE 21 U/L (12-78); ALBUMIN 3.4 g/dL (3.4-4.8); ANION GAP 9 (5-15); ASPARTATE AMINOTRANSFERASE 15 U/L (10-37); CALCIUM 9.1 mg/dL (8.4-11.0); CARBON DIOXIDE 27 mmol/L (23-29); CHLORIDE 99 mmol/L (98-107); CREATININE 0.95 mg/dL (0.55-1.30); GLUCOSE 132 mg/dL (74-106); POTASSIUM 4.1 mmol/L (3.5-5.1); SODIUM SERUM 135 mmol/L (136-145); TOTAL BILIRUBIN 0.3 mg/dL (0.0-1.0); UREA NITROGEN, BLOOD 9 mg/dL (8-21)
[2024-04-28] MEDS: AZITHROMYCIN 500 MG in NS 250 ML IV SCH (10:19)
[2024-04-28] MEDS: LATANOPROST 2.5 ML DROPS (XALATAN) OP SCH (18:00)
[2024-04-28] MEDS: DONEPEZIL HCL 5 MG TABLET (ARICEPT) PO SCH (20:41)
[2024-04-28] MEDS: GABAPENTIN 300 MG CAPSULE PO SCH (20:41)
[2024-04-28] MEDS: LORATADINE 10 MG TABLET PO SCH (20:41)
[2024-04-28] MEDS: ACETAMINOPHEN 325 MG TABLET PO PRN (20:44)
[2024-04-28] MEDS ORDERED: NON-FORMULARY MEDICATION (Cetirizine Hcl (Zyrtec) 10 MG) PO SCH (21:00)
[2024-04-28] MEDS: LURASIDONE (LATUDA) 40 MG TAB PO SCH (21:00)
[2024-04-29] VITALS (11 sets, daily range): BP systolic 113–143; PULSE 82–88; RESP 15–20; TEMP 97.2–98.9; O2SAT 93–98
[2024-04-29] MEDS: LEVOTHYROXINE SODIUM 0.088 MG TABLET PO SCH (06:21)
[2024-04-29 06:51] LABS: BASOPHILS % (AUTO) 0.3 % (0.0-2.0); HEMATOCRIT 36.3 % (36-48); HEMOGLOBIN 12.1 g/dL (12.0-16.0); LYMPHOCYTES # (AUTO) 2.1 K/uL (1.0-5.5); LYMPHOCYTES % (AUTO) 17.9 % (20.5-51.5); MEAN CORPUSCULAR HEMOGLOBIN 32 pg (27-31); MEAN CORPUSCULAR HGB CONC 33 % (32-36); MEAN CORPUSCULAR VOLUME 95 fL (79.0-98.0); MONOCYTES # (AUTO) 1.3 K/uL (0.0-1.0); MONOCYTES % (AUTO) 11.2 % (1.7-9.3); NEUTROPHILS # (AUTO) 8.4 K/uL (1.8-7.7); NEUTROPHILS % (AUTO) 70.6 % (40.0-70.0); PLATELET COUNT (AUTO) 170 K/uL (130-430); RED BLOOD CELL COUNT(AUTO) 3.81 MIL/uL (4.2-6.2); RED CELL DISTRIBUTION WIDTH 13.8 % (9.0-15.0); WHITE BLOOD COUNT (AUTO) 11.9 K/uL (4.8-10.8)
[2024-04-29 07:13] LABS: ALANINE AMINOTRANSFERASE 11 U/L (12-78); ALBUMIN 3.1 g/dL (3.4-4.8); ANION GAP 7 (5-15); ASPARTATE AMINOTRANSFERASE 17 U/L (10-37); CALCIUM 8.7 mg/dL (8.4-11.0); CARBON DIOXIDE 30 mmol/L (23-29); CHLORIDE 99 mmol/L (98-107); CREATININE 0.87 mg/dL (0.55-1.30); GLUCOSE 90 mg/dL (74-106); SODIUM SERUM 136 mmol/L (136-145); TOTAL BILIRUBIN 0.3 mg/dL (0.0-1.0); TOTAL PROTEIN, SERUM 6.5 g/dL (6.4-8.3); UREA NITROGEN, BLOOD 13 mg/dL (8-21)
[2024-04-29] MEDS: HEPARIN SODIUM,PORCINE 5,000 UNITS/ML VIAL SUBCUT SCH (20:39)
[2024-04-30] VITALS (8 sets, daily range): BP systolic 116–132; PULSE 84–91; RESP 16–18; TEMP 96.9–97.5; O2SAT 91–98
[2024-04-30 06:47] LABS: BASOPHILS % (AUTO) 0.4 % (0.0-2.0); HEMATOCRIT 36.4 % (36-48); HEMOGLOBIN 12.1 g/dL (12.0-16.0); LYMPHOCYTES # (AUTO) 2.2 K/uL (1.0-5.5); LYMPHOCYTES % (AUTO) 19.1 % (20.5-51.5); MEAN CORPUSCULAR HEMOGLOBIN 32 pg (27-31); MEAN CORPUSCULAR HGB CONC 33 % (32-36); MEAN CORPUSCULAR VOLUME 96 fL (79.0-98.0); MONOCYTES % (AUTO) 8.4 % (1.7-9.3); NEUTROPHILS # (AUTO) 8.4 K/uL (1.8-7.7); NEUTROPHILS % (AUTO) 72.1 % (40.0-70.0); PLATELET COUNT (AUTO) 174 K/uL (130-430); RED BLOOD CELL COUNT(AUTO) 3.81 MIL/uL (4.2-6.2); RED CELL DISTRIBUTION WIDTH 14.1 % (9.0-15.0); WHITE BLOOD COUNT (AUTO) 11.6 K/uL (4.8-10.8)
[2024-04-30 07:45] LABS: ANION GAP 4 (5-15); CALCIUM 8.8 mg/dL (8.4-11.0); CARBON DIOXIDE 33 mmol/L (23-29); CHLORIDE 100 mmol/L (98-107); CREATININE 0.79 mg/dL (0.55-1.30); GLUCOSE 93 mg/dL (74-106); POTASSIUM 4.2 mmol/L (3.5-5.1); SODIUM SERUM 137 mmol/L (136-145); UREA NITROGEN, BLOOD 18 mg/dL (8-21)
[2024-04-30] MEDS ORDERED: ZIT250 PO (12:06)
[2024-04-30] MEDS ORDERED: PRED20TA PO (12:06)
== END 2024-04-30 16:35 | disposition home health service (06) | DRG 140 ==
LOC: SED 19:33 → STU 04-28 02:09
PROVIDERS: ADMIT Internal Medicine; ATTEND Internal Medicine
DX: J44.1 Chronic obstructive pulmonary disease with (acute) exacerbation (principal); J96.01 Acute respiratory failure with hypoxia; I43 Cardiomyopathy in diseases classified elsewhere; F03.90 Unspecified dementia, unspecified severity, without behavioral disturbance, psychotic disturbance, mood disturbance, and anxiety; E87.1 Hypo-osmolality and hyponatremia; E03.9 Hypothyroidism, unspecified; Z20.822 Contact with and (suspected) exposure to COVID-19; F31.9 Bipolar disorder, unspecified; Z79.899 Other long term (current) drug therapy; Z88.5 Allergy status to narcotic agent; Z88.0 Allergy status to penicillin; I11.9 Hypertensive heart disease without heart failure
CPT/HCPCS: 36415; 71045; 80048; 80053; 83880; 84484; 85025; 85610; 93005; 94640; 94760; 97110-GP; 97530-GP; 99291; G0378; J0456; J1644; J7050; J7512